=== PATIENT | female | born 1995 | race Caucasian/White ===

== ENCOUNTER 2016-04-16 23:41 | Emergency (ER) | payer OTHER ==
[~2016-04-16] VITALS: Ht 162.6 cm; Wt 102.3 kg
[~2016-04-16 23:41] MED LIST: ADVAIR 100-501 EACH IH; ADVAIR 250/501 DISK IH; BENTYL20 MG PO; CALCIUM500 M4 PO; CIPRO500 MG PO; CLEARLAX510 GM; CLEOCIN150 MG PO; EPIPEN ADU0.3 MG/0.3; FLOXIN OTIC SOLN5 ML; HYDROCODON-ACE1 EAC7 PO; IMODIUM MS REL1 EACH PO; KEFLEX500 MG PO; LORTAB 5-325 M1 EACH PO; LOTRIMIN AF24 GM TP; MOTRIN600 MG PO; MOTRIN800 MG PO; NAPROSYN500 MG PO; NAPROXEN500 MG PO; NOHOMEMEDS; NORCO 5/3251 TABLET PO; PEPCID20 MG PO; SINGULAIR10 MG PO; TYLENOL EXTRA500 MG PO; ULTRAM50 MG PO; VENTOLIN HFA18 GM IH; VOSOL HC RIGHT EAR; ZITHROMAX250 MG PO; ZOFRAN ODT4 MG PO; ZOFRAN ODT8 MG PO; ZOFRAN4 MG PO; ZOFRAN8 MG PO
[2016-04-17 00:36] LABS: ADD MIUA? YES; BILIRUBIN NEGATIVE; BLOOD NEGATIVE; COLOR YELLOW ((YELLOW)); GLUCOSE (STRIP) NEGATIVE; KETONES NEGATIVE; LEUKOCYTES TRACE; NITRITE NEGATIVE; PH, URINE 6.5 (5-8); PROTEIN (STRIP) NEGATIVE; SPECIFIC GRAVITY 1.014 (1.000-1.030); UROBILINOGEN 0.2 MG/DL (0.2-1.0)
[2016-04-17 00:41] LABS: INTERNAL CONTROL VALID? YES
[2016-04-17 00:57] LABS: RED BLOOD CELLS NONE SEEN /HPF (0-5)
[2016-04-17 00:58] LABS: BACTERIA 1+; CASTS NONE SEEN /LPF; CRYSTALS NONE SEEN; EPITHELIAL CELLS RARE; MUCUS NONE SEEN; UCUL ADDED? NO
[2016-04-17 01:00] VITALS: BP 133/68
[2016-04-17] MEDS ORDERED: CIPRO500 MG PO (01:15)
[2016-04-17] MEDS ORDERED: DELTASONE20 M1 PO (01:24)
== END 2016-04-17 01:35 | disposition home or self-care (01) ==
LOC: EME → EDBD 23:41 → EME 23:41
PROVIDERS: Emergency Medicine
DX: T78.40XA Allergy, unspecified, initial encounter (principal); X58.XXXA Exposure to other specified factors, initial encounter; N39.0 Urinary tract infection, site not specified; R11.0 Nausea; R51 Headache; Z88.1 Allergy status to other antibiotic agents
CPT/HCPCS: 81003; 84703; 99281; 99284; J7512

== ENCOUNTER 2016-04-25 01:28 | Emergency (ER) | payer OTHER ==
[~2016-04-25] VITALS: Ht 165.1 cm; Wt 120.8 kg
[~2016-04-25 01:28] MED LIST changes: +DELTASONE20 M1 PO
[2016-04-25 02:43] LABS: HEMATOCRIT 36.8 % (36.0-46.0); MCH 26.5 PG (29.0-34.0); MCHC 33.2 G/DL (30.0-36.0); RBC DIS.WIDTH-CV 14.3 % (11.8-14.6); RBC DIS.WIDTH-SD 41.1 % (39-53); WHITE BLOOD COUNT 6.1 K/uL (4.1-10.2)
[2016-04-25 02:55] LABS: CHLORIDE 111 mEq/L (99-109); POTASSIUM 4.3 mEq/L (3.7-5.4); SODIUM 135 mEq/L (136-147)
[2016-04-25 02:57] LABS: GLUCOSE 109 mg/dL (70-99)
[2016-04-25 02:59] LABS: ANION GAP 9 MEQ/L (2-14); TOTAL BILIRUBIN 0.6 mg/dL (0.0-1.0)
[2016-04-25 03:01] LABS: ALKALINE PHOSPHATASE 54 IU/L (3-129); GFR ESTIMATE (CALCULATED) > 59 mL/min/
[2016-04-25 03:02] LABS: UREA NITROGEN (BUN) 8 mg/dL (9-23)
[2016-04-25 03:03] LABS: DIRECT BILIRUBIN 0.2 mg/dL (0.0-0.3)
[2016-04-25 03:04] LABS: LIPASE 26 U/L (1.0-51.0)
[2016-04-25 03:22] LABS: QUANTITATIVE HCG < 4.0 MIU/ML
[2016-04-25 03:23] LABS: ADD MIUA? YES; BILIRUBIN SMALL; BLOOD LARGE; GLUCOSE (STRIP) NEGATIVE; KETONES 15; LEUKOCYTES LARGE; NITRITE POSITIVE; PH, URINE 6.5 (5-8); PROTEIN (STRIP) 100; SPECIFIC GRAVITY 1.041 (1.000-1.030)
[2016-04-25 03:24] LABS: COLOR ORANGE ((YELLOW))
[2016-04-25 03:49] LABS: BACTERIA 2+; CASTS NONE SEEN /LPF; CRYSTALS PRESENT; EPITHELIAL CELLS RARE; MUCUS NONE SEEN; UCUL ADDED? YES; WHITE BLOOD CELLS TNTC /HPF (0-5)
[2016-04-25 03:51] LABS: CALCIUM OXALATE CRYSTALS 2+
[2016-04-25 04:11] LABS: MEAN PLAT.VOLUME 10.4 uM^3 (9.5-12.4)
[2016-04-25 04:14] LABS: PLATELET COUNT 154 K/uL (156-360)
[2016-04-25] MEDS ORDERED: ZOFRAN4 MG PO (04:26)
[2016-04-25] MEDS ORDERED: CIPRO500 MG PO (04:26)
[2016-04-25 06:06] VITALS: BP 142/80
[2016-04-25] MEDS ORDERED: REGLAN10 MG PO (19:24)
== END 2016-04-25 06:07 | disposition home or self-care (01) ==
LOC: EME 01:28
PROVIDERS: Emergency Medicine
DX: N39.0 Urinary tract infection, site not specified (principal); R11.2 Nausea with vomiting, unspecified; E86.0 Dehydration; J45.909 Unspecified asthma, uncomplicated; E11.9 Type 2 diabetes mellitus without complications; I10 Essential (primary) hypertension
CPT/HCPCS: 74176; 80048; 80076; 81003; 83690; 84702; 85027; 87086; 99281; 99285; J0744; J1885; J2405; J7030

== ENCOUNTER 2016-04-25 15:18 | Emergency (ER) | payer OTHER ==
[~2016-04-25] VITALS: Ht 165.1 cm; Wt 120.9 kg
[2016-04-25 18:21] LABS: CHLORIDE 110 mEq/L (99-109); POTASSIUM 3.9 mEq/L (3.7-5.4); SODIUM 137 mEq/L (136-147)
[2016-04-25 18:23] LABS: GLUCOSE 100 mg/dL (70-99)
[2016-04-25 18:24] LABS: ANION GAP 9 MEQ/L (2-14)
[2016-04-25 18:25] LABS: TOTAL BILIRUBIN 0.8 mg/dL (0.0-1.0)
[2016-04-25 18:27] LABS: ALKALINE PHOSPHATASE 69 IU/L (3-129); GFR ESTIMATE (CALCULATED) > 59 mL/min/
[2016-04-25 18:28] LABS: UREA NITROGEN (BUN) 6 mg/dL (9-23)
[2016-04-25 18:31] LABS: HEMATOCRIT 37.2 % (36.0-46.0); MCHC 34.1 G/DL (30.0-36.0); MCV 79.1 FL (83-99); MEAN PLAT.VOLUME 10.3 uM^3 (9.5-12.4); PLATELET COUNT 134 K/uL (156-360); RBC DIS.WIDTH-CV 14.5 % (11.8-14.6); WHITE BLOOD COUNT 6.9 K/uL (4.1-10.2)
[2016-04-25 18:32] LABS: BASOPHIL COUNT 0.2 K/uL (0-0.1); EOSINOPHIL (%) 0.1 % (0-5); IMMATURE GRANULOCYTE (%) 0.3 % (0.0-0.7); IMMATURE GRANULOCYTE COUNT 0.2 K/uL; LYMPHOCYTE COUNT 2.7 K/uL (1.0-2.8); MONOCYTE (%) 12.5 % (3-12); MONOCYTE COUNT 0.9 K/uL (0-0.8); NEUTROPHIL COUNT 3.1 K/uL (1.8-6.4)
[2016-04-25] MEDS ORDERED: REGLAN10 MG PO (19:24)
[2016-04-25 19:28] LABS: ADD MIUA? YES; BILIRUBIN NEGATIVE; BLOOD MODERATE; COLOR YELLOW ((YELLOW)); GLUCOSE (STRIP) NEGATIVE; KETONES 15; LEUKOCYTES MODERATE; NITRITE NEGATIVE; PROTEIN (STRIP) NEGATIVE; SPECIFIC GRAVITY 1.018 (1.000-1.030); UROBILINOGEN 0.2 MG/DL (0.2-1.0)
[2016-04-25 19:52] LABS: BACTERIA 2+; CASTS NONE SEEN /LPF; CRYSTALS NONE SEEN; EPITHELIAL CELLS 1+; MUCUS NONE SEEN; RED BLOOD CELLS RARE /HPF (0-5); UCUL ADDED? YES; WHITE BLOOD CELLS 30-40 /HPF (0-5)
[2016-04-25 20:35] VITALS: BP 130/84
== END 2016-04-25 20:36 | disposition home or self-care (01) ==
LOC: EME → EDBD 15:18 → EME 15:18
PROVIDERS: Physician Assistant
DX: N39.0 Urinary tract infection, site not specified (principal); R11.0 Nausea
CPT/HCPCS: 80053; 81003; 83605; 85025; 87040; 87086; 99281; 99284; J0696; J2765; J7050; J7120

== ENCOUNTER → 2016-05-08 | Outpatient (CLI) | payer OTHER ==
[~2016-05-08] MED LIST changes: +REGLAN10 MG PO
== END | disposition home or self-care (01) ==
LOC: NUC 11:32
DX: K76.0 Fatty (change of) liver, not elsewhere classified (principal); R10.9 Unspecified abdominal pain; J45.909 Unspecified asthma, uncomplicated
CPT/HCPCS: 78227; A9537; J2805

== ENCOUNTER 2016-06-12 09:43 | Emergency (ER) | payer OTHER ==
[~2016-06-12] VITALS: Ht 165.1 cm; Wt 121.4 kg
[2016-06-12 11:04] LABS: ADD MIUA? YES; BILIRUBIN NEGATIVE; BLOOD NEGATIVE; COLOR YELLOW ((YELLOW)); GLUCOSE (STRIP) NEGATIVE; KETONES NEGATIVE; LEUKOCYTES NEGATIVE; NITRITE NEGATIVE; PROTEIN (STRIP) NEGATIVE; SPECIFIC GRAVITY 1.021 (1.000-1.030); UROBILINOGEN 0.2 MG/DL (0.2-1.0)
[2016-06-12 11:06] LABS: BACTERIA RARE /HPF; EPITHELIAL CELLS 1+ /HPF; MUCUS TRACE /LPF; RED BLOOD CELLS 0-5 /HPF (0-5); WHITE BLOOD CELLS 0-5 /HPF (0-5)
[2016-06-12 11:25] VITALS: BP 124/68
== END 2016-06-12 11:26 | disposition home or self-care (01) ==
LOC: EME 09:43
PROVIDERS: Nurse Practitioner Family
DX: S00.93XA Contusion of unspecified part of head, initial encounter (principal); K59.00 Constipation, unspecified; V48.1XXA Car passenger injured in noncollision transport accident in nontraffic accident, initial encounter; Z88.1 Allergy status to other antibiotic agents; Z88.2 Allergy status to sulfonamides
CPT/HCPCS: 74020; 81003; 99281; 99283

== ENCOUNTER 2016-06-25 15:08 | Emergency (ER) | payer OTHER ==
[~2016-06-25] VITALS: Ht 165.1 cm; Wt 121.7 kg
[2016-06-25 15:52] LABS: EOSINOPHIL (%) 0.7 % (0-5); EOSINOPHIL COUNT 0.1 K/uL (0-0.3); HEMATOCRIT 38.7 % (36.0-46.0); IMMATURE GRANULOCYTE (%) 0.3 % (0.0-0.7); INSTRUMENT ABS NEUTROPHIL CT 4.3 K/uL; LYMPHOCYTE COUNT 2.1 K/uL (1.0-2.8); MCH 25.8 PG (29.0-34.0); MCHC 32.6 G/DL (30.0-36.0); MCV 79.1 FL (83-99); MEAN PLAT.VOLUME 9.7 uM^3 (9.5-12.4); MONOCYTE (%) 6.4 % (3-12); MONOCYTE COUNT 0.4 K/uL (0-0.8); NEUTROPHIL (%) 61.5 % (45-76); NEUTROPHIL COUNT 4.3 K/uL (1.8-6.4); PLATELET COUNT 261 K/uL (156-360); RBC DIS.WIDTH-SD 36.9 % (39-53); RED BLOOD COUNT 4.89 M/uL (3.80-5.20); WHITE BLOOD COUNT 6.9 K/uL (4.1-10.2)
[2016-06-25 15:59] LABS: CHLORIDE 107 mEq/L (99-109); POTASSIUM 3.9 mEq/L (3.7-5.4); SODIUM 140 mEq/L (136-147)
[2016-06-25 16:02] LABS: GLUCOSE 114 mg/dL (70-99)
[2016-06-25 16:03] LABS: ANION GAP 9 MEQ/L (2-14); TOTAL BILIRUBIN 0.4 mg/dL (0.0-1.0)
[2016-06-25 16:05] LABS: GFR ESTIMATE (CALCULATED) > 59 mL/min/; SERUM ETHYL ALCOHOL < 10 mg/dL
[2016-06-25 16:06] LABS: ALKALINE PHOSPHATASE 44 IU/L (3-129)
[2016-06-25 16:07] LABS: UREA NITROGEN (BUN) 11 mg/dL (9-23)
[2016-06-25 16:09] LABS: SALICYLATE < 5.0 MG/DL (15-30)
[2016-06-25 16:15] LABS: QUANTITATIVE HCG < 4.0 MIU/ML
[2016-06-25 17:45] LABS: ADD MIUA? NO; BILIRUBIN NEGATIVE; BLOOD NEGATIVE; COLOR YELLOW ((YELLOW)); GLUCOSE (STRIP) NEGATIVE; KETONES NEGATIVE; LEUKOCYTES NEGATIVE; NITRITE NEGATIVE; PROTEIN (STRIP) NEGATIVE; SPECIFIC GRAVITY 1.018 (1.000-1.030); UCUL ADDED? NO; UROBILINOGEN 0.2 MG/DL (0.2-1.0)
[2016-06-25 17:57] LABS: AMPHETAMINE NEGATIVE (500 ng/mL); BARBITURATES NEGATIVE (200 ng/mL); BENZODIAZEPINES NEGATIVE (150 ng/mL); COCAINE NEGATIVE (150 ng/mL); INTERNAL CONTROLS VALID? YES; METHADONE NEGATIVE (200 ng/mL); METHAMPHETAMINE NEGATIVE (500 ng/mL); OPIATES (MORPHINE) NEGATIVE (100 ng/mL); OXYCODONE NEGATIVE (100 ng/mL); PHENCYCLIDINE NEGATIVE (25 ng/mL); PROPOXYPHENE NEGATIVE (300 ng/mL); THC CANNABINOIDS NEGATIVE (50 ng/mL); TRICYCLIC ANTIDEPRESSANTS NEGATIVE (300 ng/mL)
[2016-06-25 18:17] VITALS: BP 114/57
== END 2016-06-25 18:26 | disposition home or self-care (01) ==
LOC: EME 15:08
PROVIDERS: Emergency Medicine
DX: R30.0 Dysuria (principal); Z04.6 Encounter for general psychiatric examination, requested by authority; F32.9 Major depressive disorder, single episode, unspecified; F41.9 Anxiety disorder, unspecified; F12.10 Cannabis abuse, uncomplicated; Z91.5 Personal history of self-harm; R21 Rash and other nonspecific skin eruption; Z87.891 Personal history of nicotine dependence
CPT/HCPCS: 80053; 81003; 84702; 85025; 90837; 99281; 99285; G0480

== ENCOUNTER 2016-08-27 11:21 | Emergency (ER) | payer OTHER ==
[~2016-08-27] VITALS: Ht 165.1 cm; Wt 127.1 kg
[2016-08-27] MEDS ORDERED: BIRTH CONTROL (11:41)
[2016-08-27 12:03] LABS: HEMATOCRIT 38.9 % (36.0-46.0); MCH 25.1 PG (29.0-34.0); MCHC 31.9 G/DL (30.0-36.0); MCV 78.6 FL (83-99); MEAN PLAT.VOLUME 9.8 uM^3 (9.5-12.4); PLATELET COUNT 222 K/uL (156-360); RBC DIS.WIDTH-CV 13.5 % (11.8-14.6); RBC DIS.WIDTH-SD 38.6 % (39-53); RED BLOOD COUNT 4.95 M/uL (3.80-5.20); WHITE BLOOD COUNT 5.2 K/uL (4.1-10.2)
[2016-08-27 12:08] LABS: CHLORIDE 108 mEq/L (99-109); POTASSIUM 3.6 mEq/L (3.7-5.4); SODIUM 140 mEq/L (136-147)
[2016-08-27 12:09] LABS: GLUCOSE 129 mg/dL (70-99)
[2016-08-27 12:11] LABS: ANION GAP 10 MEQ/L (2-14)
[2016-08-27 12:13] LABS: GFR ESTIMATE (CALCULATED) > 59 mL/min/
[2016-08-27 12:14] LABS: UREA NITROGEN (BUN) 10 mg/dL (9-23)
[2016-08-27 12:22] LABS: QUANTITATIVE HCG < 4.0 MIU/ML
[2016-08-27 12:28] LABS: ADD MIUA? YES; BILIRUBIN NEGATIVE; BLOOD LARGE; COLOR YELLOW ((YELLOW)); GLUCOSE (STRIP) NEGATIVE; KETONES NEGATIVE; LEUKOCYTES TRACE; NITRITE NEGATIVE; PROTEIN (STRIP) 30; SPECIFIC GRAVITY 1.026 (1.000-1.030); UROBILINOGEN 0.2 MG/DL (0.2-1.0)
[2016-08-27 12:34] LABS: BACTERIA RARE /HPF; EPITHELIAL CELLS 2+ /HPF; MUCUS TRACE /LPF; RED BLOOD CELLS TNTC /HPF (0-5); UCUL ADDED? NO
[2016-08-27] MEDS ORDERED: CIPRO500 MG PO (12:43)
[2016-08-27 14:19] VITALS: BP 126/74
== END 2016-08-27 14:21 | disposition home or self-care (01) ==
LOC: EME 11:21
PROVIDERS: Emergency Medicine
DX: N39.0 Urinary tract infection, site not specified (principal); E86.0 Dehydration; I10 Essential (primary) hypertension; Z88.1 Allergy status to other antibiotic agents; Z88.2 Allergy status to sulfonamides; Z87.891 Personal history of nicotine dependence
CPT/HCPCS: 80048; 81003; 84702; 85027; 99281; 99285; J1885; J7030

== ENCOUNTER 2017-01-26 17:02 | Emergency (ER) | payer OTHER ==
[~2017-01-26] VITALS: Ht 165.1 cm; Wt 128.5 kg
[~2017-01-26 17:02] MED LIST changes: +BIRTH CONTROL
[2017-01-26] MEDS ORDERED: ANTIVERT25 MG PO (17:46)
[2017-01-26] MEDS ORDERED: MOTRIN800 MG PO (17:46)
[2017-01-26] MEDS ORDERED: MUCINEX D ER T1 EACH PO (17:46)
[2017-01-26 18:17] VITALS: BP 159/72
== END 2017-01-26 18:18 | disposition home or self-care (01) ==
LOC: EME 17:02
DX: S06.0X0A Concussion without loss of consciousness, initial encounter (principal); W22.09XA Striking against other stationary object, initial encounter; H65.93 Unspecified nonsuppurative otitis media, bilateral; J45.909 Unspecified asthma, uncomplicated; Z87.891 Personal history of nicotine dependence
CPT/HCPCS: 99281; 99284

== ENCOUNTER 2017-02-16 16:35 | Emergency (ER) | payer OTHER ==
[~2017-02-16] VITALS: Ht 165.1 cm; Wt 125.4 kg
[~2017-02-16 16:35] MED LIST changes: +ANTIVERT25 MG PO; +MUCINEX D ER T1 EACH PO
[2017-02-16 17:22] LABS: HEMATOCRIT 44.1 % (36.0-46.0); MCHC 32.7 G/DL (30.0-36.0); MCV 79.6 FL (83-99); PLATELET COUNT 239 K/uL (156-360); RBC DIS.WIDTH-CV 13.5 % (11.8-14.6); RBC DIS.WIDTH-SD 39.5 % (39-53); RED BLOOD COUNT 5.54 M/uL (3.80-5.20); WHITE BLOOD COUNT 7.1 K/uL (4.1-10.2)
[2017-02-16 17:31] LABS: CHLORIDE 104 mEq/L (99-109); POTASSIUM 3.6 mEq/L (3.7-5.4); SODIUM 141 mEq/L (136-147)
[2017-02-16 17:33] LABS: GLUCOSE 91 mg/dL (70-99)
[2017-02-16 17:34] LABS: ANION GAP 14 MEQ/L (2-14)
[2017-02-16 17:37] LABS: GFR ESTIMATE (CALCULATED) > 59 mL/min/
[2017-02-16 17:38] LABS: UREA NITROGEN (BUN) 8 mg/dL (9-23)
[2017-02-16 19:53] LABS: TOTAL BILIRUBIN 0.8 mg/dL (0.0-1.0)
[2017-02-16 19:54] LABS: ALKALINE PHOSPHATASE 60 IU/L (3-129)
[2017-02-16 19:57] LABS: DIRECT BILIRUBIN 0.3 mg/dL (0.0-0.3)
[2017-02-16 19:58] LABS: LIPASE 30 U/L (1.0-51.0)
[2017-02-16 20:04] LABS: QUANTITATIVE HCG < 4.0 MIU/ML
[2017-02-16 20:37] LABS: ADD MIUA? YES; BILIRUBIN NEGATIVE; BLOOD NEGATIVE; COLOR YELLOW ((YELLOW)); GLUCOSE (STRIP) NEGATIVE; KETONES 5; LEUKOCYTES SMALL; NITRITE NEGATIVE; PROTEIN (STRIP) NEGATIVE; SPECIFIC GRAVITY 1.024 (1.000-1.030); UROBILINOGEN 0.2 MG/DL (0.2-1.0)
[2017-02-16 20:46] LABS: BACTERIA RARE /HPF; EPITHELIAL CELLS 2+ /HPF; MUCUS TRACE /LPF; RED BLOOD CELLS 0-5 /HPF (0-5)
[2017-02-16] MEDS ORDERED: MOTRIN800 MG PO (21:15)
[2017-02-16] MEDS ORDERED: LEVAQUIN500 MG PO (21:15)
[2017-02-16] MEDS ORDERED: TESSALON PERLE100 MG PO (21:15)
[2017-02-16 22:09] VITALS: BP 132/67
== END 2017-02-16 22:11 | disposition home or self-care (01) ==
LOC: EME 16:35
PROVIDERS: Physician Assistant
DX: J18.0 Bronchopneumonia, unspecified organism (principal); S39.011A Strain of muscle, fascia and tendon of abdomen, initial encounter; X58.XXXA Exposure to other specified factors, initial encounter; J45.909 Unspecified asthma, uncomplicated; I10 Essential (primary) hypertension; R73.03 Prediabetes; Z87.891 Personal history of nicotine dependence; Z88.0 Allergy status to penicillin; Z88.2 Allergy status to sulfonamides; Z88.1 Allergy status to other antibiotic agents; Z88.8 Allergy status to other drugs, medicaments and biological substances
CPT/HCPCS: 71020; 74176; 80048; 80076; 81003; 83690; 84702; 85027; 87502; 99281; 99284; J1885

== ENCOUNTER 2017-04-14 16:03 | Emergency (ER) | payer OTHER ==
[~2017-04-14] VITALS: Ht 165.1 cm; Wt 130.6 kg
[~2017-04-14 16:03] MED LIST changes: +LEVAQUIN500 MG PO; +TESSALON PERLE100 MG PO
[2017-04-14 16:42] LABS: HEMOGLOBIN 12.2 G/DL (11.9-15.5); MCH 26.3 PG (29.0-34.0); MCV 79.9 FL (83-99); PLATELET COUNT 238 K/uL (156-360); RBC DIS.WIDTH-CV 13.6 % (11.8-14.6); RBC DIS.WIDTH-SD 39.2 % (39-53); RED BLOOD COUNT 4.63 M/uL (3.80-5.20); WHITE BLOOD COUNT 7.7 K/uL (4.1-10.2)
[2017-04-14 16:53] LABS: CHLORIDE 111 mEq/L (99-109); SODIUM 140 mEq/L (136-147)
[2017-04-14 16:55] LABS: GLUCOSE 98 mg/dL (70-99)
[2017-04-14 16:59] LABS: CREATININE 0.7 mg/dL (0.6-1.3); GFR ESTIMATE (CALCULATED) > 59 mL/min/
[2017-04-14 17:00] LABS: UREA NITROGEN (BUN) 11 mg/dL (9-23)
[2017-04-14 17:20] LABS: APPEARANCE CLEAR ((CLEAR)); BILIRUBIN NEGATIVE; BLOOD LARGE; COLOR STRAW ((YELLOW)); GLUCOSE (STRIP) NEGATIVE; KETONES NEGATIVE; LEUKOCYTES NEGATIVE; NITRITE NEGATIVE; PROTEIN (STRIP) NEGATIVE; SPECIFIC GRAVITY 1.012 (1.000-1.030); UROBILINOGEN 0.2 MG/DL (0.2-1.0)
[2017-04-14 17:29] LABS: BACTERIA NONE SEEN /HPF; EPITHELIAL CELLS RARE /HPF; MUCUS NONE SEEN /LPF; RED BLOOD CELLS TNTC /HPF (0-5); UCUL ADDED? YES
[2017-04-14 17:45] LABS: QUANTITATIVE HCG < 4.0 MIU/ML
[2017-04-14] MEDS ORDERED: KEFLEX500 MG PO (20:31)
[2017-04-14] MEDS ORDERED: PYRIDIUM200 MG PO (20:31)
[2017-04-14 20:52] VITALS: BP 138/68
== END 2017-04-14 21:00 | disposition home or self-care (01) ==
LOC: EME 16:03
DX: N39.0 Urinary tract infection, site not specified (principal); R10.31 Right lower quadrant pain; J45.909 Unspecified asthma, uncomplicated; I10 Essential (primary) hypertension; R73.03 Prediabetes; Z87.891 Personal history of nicotine dependence; Z88.2 Allergy status to sulfonamides; Z88.1 Allergy status to other antibiotic agents; Z88.0 Allergy status to penicillin
CPT/HCPCS: 74177; 80048; 81003; 84702; 84702 90; 85027; 87086; 99281; 99285; J1885; J2405

== ENCOUNTER 2017-06-10 12:47 | Emergency (ER) | payer OTHER ==
[~2017-06-10] VITALS: Ht 165.1 cm; Wt 129.2 kg
[~2017-06-10 12:47] MED LIST changes: +PYRIDIUM200 MG PO
[2017-06-10 15:01] VITALS: BP 117/60
== END 2017-06-10 15:02 | disposition home or self-care (01) ==
LOC: EME 12:47
DX: S93.402A Sprain of unspecified ligament of left ankle, initial encounter (principal); M54.2 Cervicalgia; R51 Headache; W01.0XXA Fall on same level from slipping, tripping and stumbling without subsequent striking against object, initial encounter; Y92.480 Sidewalk as the place of occurrence of the external cause; R11.2 Nausea with vomiting, unspecified; J45.909 Unspecified asthma, uncomplicated; Z87.891 Personal history of nicotine dependence
CPT/HCPCS: 70450; 72040; 73610; 99281; 99284

== ENCOUNTER 2017-09-04 11:32 | Emergency (ER) | payer OTHER ==
[~2017-09-04] VITALS: Ht 165.1 cm; Wt 128.6 kg
[2017-09-04 13:00] VITALS: BP 150/103
== END 2017-09-04 13:09 | disposition home or self-care (01) ==
LOC: EME 11:32
DX: F41.9 Anxiety disorder, unspecified (principal); R07.9 Chest pain, unspecified; R51 Headache; J45.909 Unspecified asthma, uncomplicated; Z79.3 Long term (current) use of hormonal contraceptives; Z87.891 Personal history of nicotine dependence
CPT/HCPCS: 93005; 99281; 99283

== ENCOUNTER 2017-10-23 15:54 | Emergency (ER) | payer OTHER ==
[~2017-10-23] VITALS: Ht 165.1 cm; Wt 128.4 kg
[2017-10-23 16:49] LABS: HEMATOCRIT 40.5 % (36.0-46.0); HEMOGLOBIN 13.5 G/DL (11.9-15.5); MCH 26.6 PG (29.0-34.0); MCHC 33.3 G/DL (30.0-36.0); MCV 79.7 FL (83-99); PLATELET COUNT 270 K/uL (156-360); RBC DIS.WIDTH-CV 13.5 % (11.8-14.6); RBC DIS.WIDTH-SD 39.2 % (39-53); RED BLOOD COUNT 5.08 M/uL (3.80-5.20); WHITE BLOOD COUNT 7.6 K/uL (4.1-10.2)
[2017-10-23 16:57] LABS: ALBUMIN 4.4 g/dL (3.2-4.8); CHLORIDE 106 mEq/L (99-109); POTASSIUM 3.8 mEq/L (3.7-5.4); SODIUM 143 mEq/L (136-147)
[2017-10-23 16:59] LABS: GLUCOSE 77 mg/dL (70-99); TOTAL PROTEIN 7.8 g/dL (6.4-8.3)
[2017-10-23 17:01] LABS: TOTAL BILIRUBIN 0.5 mg/dL (0.0-1.0)
[2017-10-23 17:03] LABS: ALKALINE PHOSPHATASE 68 IU/L (3-129); CREATININE 0.8 mg/dL (0.6-1.3); GFR ESTIMATE (CALCULATED) > 59 mL/min/
[2017-10-23 17:04] LABS: AST (GOT) 33 IU/L (2-34); UREA NITROGEN (BUN) 9 mg/dL (9-23)
[2017-10-23 17:06] LABS: ALT (GPT) 58 IU/L (3-49)
[2017-10-23 17:14] LABS: QUANTITATIVE HCG < 4.0 MIU/ML
[2017-10-23 18:03] LABS: APPEARANCE CLEAR ((CLEAR)); BILIRUBIN NEGATIVE; BLOOD NEGATIVE; COLOR YELLOW ((YELLOW)); GLUCOSE (STRIP) NEGATIVE; KETONES NEGATIVE; LEUKOCYTES NEGATIVE; NITRITE NEGATIVE; PROTEIN (STRIP) NEGATIVE; SPECIFIC GRAVITY 1.033 (1.000-1.030); UCUL ADDED? NO; UROBILINOGEN 0.2 MG/DL (0.2-1.0)
[2017-10-23] MEDS ORDERED: BENTYL10 MG PO (18:10)
[2017-10-23] MEDS ORDERED: ZOFRAN ODT4 MG PO (18:10)
[2017-10-23 18:22] VITALS: BP 152/98
== END 2017-10-23 18:47 | disposition home or self-care (01) ==
LOC: EME 15:54
DX: R10.30 Lower abdominal pain, unspecified (principal); R11.0 Nausea; E86.0 Dehydration; N89.8 Other specified noninflammatory disorders of vagina; I10 Essential (primary) hypertension; J45.909 Unspecified asthma, uncomplicated; Z87.891 Personal history of nicotine dependence; Z88.0 Allergy status to penicillin; Z88.1 Allergy status to other antibiotic agents; Z88.2 Allergy status to sulfonamides
CPT/HCPCS: 76705; 80053; 81003; 84702; 85027; 99281; 99284

== ENCOUNTER 2017-11-25 18:24 | Emergency (ER) | payer OTHER ==
[~2017-11-25] VITALS: Ht 165.1 cm; Wt 130.3 kg
[~2017-11-25 18:24] MED LIST changes: +BENTYL10 MG PO
[2017-11-25 20:00] VITALS: BP 166/86
== END 2017-11-25 20:01 | disposition home or self-care (01) ==
LOC: EME 18:24
DX: S93.401A Sprain of unspecified ligament of right ankle, initial encounter (principal); S90.511A Abrasion, right ankle, initial encounter; W22.8XXA Striking against or struck by other objects, initial encounter; Z87.891 Personal history of nicotine dependence; Z88.2 Allergy status to sulfonamides; Z88.1 Allergy status to other antibiotic agents; Z88.0 Allergy status to penicillin
CPT/HCPCS: 73610; 99281; 99284